=== PATIENT | male | born 1955 | race Caucasian/White ===

== ENCOUNTER 2018-03-06 10:50 | Inpatient (IN) ==
[2018-03-06] MEDS ORDERED: ASPIRIN 325 MG TABLET PO STA (11:03)
[2018-03-06] MEDS ORDERED: LOPERAMIDE 2 MG CAPSULE PO STA (11:09)
[2018-03-06] MEDS ORDERED: ALBUTEROL/IPRATROPIUM 3 ML NEB RESP TX STA (11:09)
[2018-03-06] MEDS ORDERED: methylPREDNISolone SOD SUC 125 MG/2 ML VIAL IV STA (11:11)
[2018-03-06 11:16] LABS: Basophils # 0.1 10*3/uL (0.0-0.2); Basophils % 0.8 % (0.0-0.8); Eosinophils # 0.3 10*3/uL (0.0-0.87); Eosinophils % 3.3 % (0.00-10.9); Hematocrit 38.6 VOL% (42.0-52.0); Immature Granulocytes % 0.4 %; Immature Granulocytes Absolute 0.03 #; Lymphocytes # 1.3 10*3/uL (1.4-4.0); Lymphocytes % 17.7 % (21.2-54.2); Mean Corpuscular HGB Conc 33.7 GM/DL (32-36); Mean Corpuscular Hemoglobin 30 PG (27-34); Mean Corpuscular Volume 90.4 FL (87-102); Mean Platelet Volume 10.7 FL (9.6-12.0); Monocytes # 0.7 10*3/uL (0.11-0.8); Monocytes % 9.2 % (1.7-12.7); Neutrophils # 5.1 10*3/uL (1.4-7.4); Neutrophils % 68.6 % (38.7-73.9); Platelet Count 140 T/CUMM (130-400); Red Blood Count 4.27 MC/CUMM (3.8-5.5); Red Cell Distribution Width 14.4 % (9.3-17.3); White Blood Count 7.5 T/CUMM (4-12)
[2018-03-06 11:25] LABS: INR 1.1; PT Patient Result 11.1 SECS; Partial Thromboplastin Time 27.1 SECS (0-40)
[2018-03-06 11:42] LABS: Albumin 3.5 G/DL (3.4-5.0); Bilirubin,Total 0.7 MG/DL (0.2-1.0); Calcium 8.6 MG/DL (8.5-10.1); Osmolality,Calculated 289.8 MOS/KG (273-304); Potassium 3.8 MMOL/L (3.5-5.1)
[2018-03-06 11:46] LABS: Troponin I 0.136 NG/ML (0.00-0.045)
[2018-03-06 12:39] LABS: Apearance,Urine CLEAR (Clear); Bacteria,Urine Occasional /HPF (Few); Bilirubin,Urine Negative (Negative); Blood, Urine Negative (Negative); Glucose,Urine (UA) Negative (Negative); Ketones,Urine Negative (Negative); Mucus,Urine Occasional /LPF (Occasional); Nitrite,Urine Negative (Negative); Protein,Urine Negative; RBC,Urine <1 /HPF (0-4); Urine Color Straw (Yellow); Urine Specific Gravity 1.006 (1.001-1.035); Urine Urobilinogen < 2.0 EU/DL (0.2-1.0)
[2018-03-06] MEDS ORDERED: FUROSEMIDE 20 MG TABLET PO PRN (13:53)
[2018-03-06] MEDS ORDERED: ERGOCALCIFEROL 50,000 UNIT CAPSULE PO SCH (14:00)
[2018-03-06] MEDS ORDERED: ONDANSETRON 4 MG/2 ML VIAL IV PRN (14:03)
[2018-03-06] MEDS ORDERED: ACETAMINOPHEN 325 MG TABLET PO PRN (14:03)
[2018-03-06] MEDS ORDERED: MAGNESIUM SULF RIDER 2 GM in PREMIX 1 EACH IV PRN (14:06)
[2018-03-06] MEDS ORDERED: POTASSIUM CHLORIDE 20 MEQ TABLET PO PRN (14:06)
[2018-03-06] MEDS: cefTRIAXone 2,000 MG in SYRINGE 1 EACH IV SCH (16:42)
[2018-03-06] MEDS: FUROSEMIDE 40 MG/4 ML VIAL IV SCH (16:42)
[2018-03-06] MEDS: AZITHROMYCIN INJ 500 MG in SODIUM CHLORIDE 0.9% 250 ML IV SCH (16:43)
[2018-03-06] MEDS: ENOXAPARIN 150 MG/ML SYRINGE SUBCUT SCH (17:40)
[2018-03-06] MEDS ORDERED: NITROGLYCERIN SL 0.4 MG TABLET SL PRN (17:44)
[2018-03-06] MEDS ORDERED: LISINOPRIL 20 MG TABLET PO ONE (18:00)
[2018-03-06] MEDS ORDERED: cloNIDine 0.1 MG TABLET PO PRN (19:35)
[2018-03-06] MEDS: ALBUTEROL/IPRATROPIUM 3 ML NEB RESP TX SCH (19:43)
[2018-03-06] MEDS: ATORVASTATIN 80 MG TABLET PO SCH (20:52)
[2018-03-06] MEDS: METOPROLOL TARTRATE 25 MG TABLET PO SCH (20:52)
[2018-03-06] MEDS: TAMSULOSIN 0.4 MG CAPSULE PO SCH (20:53)
[2018-03-06] MEDS: methylPREDNISolone SOD SUC 40 MG/1 ML VIAL IV SCH (20:53)
[2018-03-06] MEDS: clonazePAM 0.5 MG TABLET PO SCH (21:39)
[2018-03-07] MEDS: ALBUTEROL/IPRATROPIUM 3 ML NEB RESP TX SCH ×4 (00:32→19:03)
[2018-03-07 04:19] LABS: Basophils % 0.3 % (0.0-0.8); Hematocrit 37.8 VOL% (42.0-52.0); Hemoglobin 12.4 GM/DL (14.0-18.0); Immature Granulocytes % 0.6 %; Immature Granulocytes Absolute 0.04 #; Lymphocytes # 0.7 10*3/uL (1.4-4.0); Mean Corpuscular HGB Conc 32.8 GM/DL (32-36); Mean Corpuscular Hemoglobin 30 PG (27-34); Mean Corpuscular Volume 90.6 FL (87-102); Mean Platelet Volume 11.2 FL (9.6-12.0); Monocytes # 0.2 10*3/uL (0.11-0.8); Monocytes % 2.5 % (1.7-12.7); Neutrophils # 5.7 10*3/uL (1.4-7.4); Neutrophils % 86.6 % (38.7-73.9); Platelet Count 129 T/CUMM (130-400); Red Blood Count 4.17 MC/CUMM (3.8-5.5); Red Cell Distribution Width 14.3 % (9.3-17.3); White Blood Count 6.5 T/CUMM (4-12)
[2018-03-07 04:33] LABS: Calcium 8.8 MG/DL (8.5-10.1); Osmolality,Calculated 289.3 MOS/KG (273-304); Potassium 3.8 MMOL/L (3.5-5.1)
[2018-03-07 04:36] LABS: Risk Ratio 4.09; VLDL CHOLESTEROL 35.2 MG/DL
[2018-03-07] MEDS: ENOXAPARIN 150 MG/ML SYRINGE SUBCUT SCH ×2 (05:41→21:36)
[2018-03-07] MEDS ORDERED: POTASSIUM CHLORIDE RIDER 10 MEQ in PREMIX 1 EACH IV PRN (07:41)
[2018-03-07] MEDS ORDERED: MAGNESIUM SULF RIDER 2 GM in PREMIX 1 EACH IV PRN (07:41)
[2018-03-07] MEDS ORDERED: DIAZEPAM 5 MG TABLET PO ONE (07:41)
[2018-03-07] MEDS ORDERED: diphenhydrAMINE CAP 25 MG CAPSULE PO ONE (07:41)
[2018-03-07] MEDS ORDERED: HEPARIN/NACL 0.9% 2 UNITS/ML 1,000 ML IV ONE (07:55)
[2018-03-07] MEDS ORDERED: LIDOCAINE 1%/EPI INJ 20 ML VIAL ONE (07:55)
[2018-03-07] MEDS: ASPIRIN EC 81 MG TABLET PO SCH (08:09)
[2018-03-07] MEDS ORDERED: LIDOCAINE 1% 20 ML VIAL ONE (08:42)
[2018-03-07] MEDS ORDERED: NITROGLYCERIN DRIP 50 MG/250 ML BOTTLE IV ONE (08:44)
[2018-03-07] MEDS ORDERED: MIDAZOLAM 2 MG/2 ML VIAL ONE (08:44)
[2018-03-07] MEDS ORDERED: fentaNYL 100 MCG/2 ML VIAL ONE (08:44)
[2018-03-07] MEDS ORDERED: VERAPAMIL 5 MG/2 ML VIAL ONE (08:44)
[2018-03-07] MEDS ORDERED: CLOPIDOGREL 75 MG TABLET PO SCH (09:00)
[2018-03-07] MEDS ORDERED: FAMOTIDINE 20 MG TABLET PO SCH (09:00)
[2018-03-07] MEDS ORDERED: HYDROmorphone 2 MG/1 ML VIAL IV PRN (09:29)
[2018-03-07] MEDS ORDERED: DEXTROSE 5% NACL 0.45% 1,000 ML IV SCH (09:30)
[2018-03-07] MEDS: LISINOPRIL 20 MG TABLET PO SCH (14:17)
[2018-03-07] MEDS: PANTOPRAZOLE 40 MG TABLET PO SCH (14:17)
[2018-03-07] MEDS: COENZYME Q10 100 MG CAPSULE PO SCH (14:17)
[2018-03-07] MEDS: MULTIVITAMIN (BEROCCA) TABLET PO SCH (14:17)
[2018-03-07] MEDS: THIAMINE 100 MG TABLET PO SCH (14:17)
[2018-03-07] MEDS: TRIAMTERENE/HCTZ 75-50 MG TABLET PO SCH (14:18)
[2018-03-07] MEDS: ISOSORBIDE MONONITRATE 30 MG TABLET PO SCH (14:18)
[2018-03-07] MEDS: FOLIC ACID 1 MG TABLET PO SCH (14:18)
[2018-03-07] MEDS: ESCITALOPRAM 10 MG TABLET PO SCH (14:18)
[2018-03-07] MEDS: ATORVASTATIN 80 MG TABLET PO SCH (14:18)
[2018-03-07] MEDS: methylPREDNISolone SOD SUC 40 MG/1 ML VIAL IV SCH ×2 (14:19→21:36)
[2018-03-07] MEDS: FUROSEMIDE 40 MG/4 ML VIAL IV SCH (14:25)
[2018-03-07] MEDS: METOPROLOL TARTRATE 25 MG TABLET PO SCH ×2 (14:29→21:36)
[2018-03-07] MEDS: SAW PALMETTO 500 MG PO SCH (15:28)
[2018-03-07] MEDS: cefTRIAXone 2,000 MG in SYRINGE 1 EACH IV SCH (16:48)
[2018-03-07] MEDS: AZITHROMYCIN INJ 500 MG in SODIUM CHLORIDE 0.9% 250 ML IV SCH (16:55)
[2018-03-07] MEDS: TAMSULOSIN 0.4 MG CAPSULE PO SCH (21:27)
[2018-03-07] MEDS: clonazePAM 0.5 MG TABLET PO SCH (21:27)
[2018-03-08] MEDS: ALBUTEROL/IPRATROPIUM 3 ML NEB RESP TX SCH ×4 (00:12→19:00)
[2018-03-08 04:07] LABS: Basophils % 0.1 % (0.0-0.8); Hematocrit 35.7 VOL% (42.0-52.0); Hemoglobin 11.8 GM/DL (14.0-18.0); Immature Granulocytes % 0.7 %; Immature Granulocytes Absolute 0.05 #; Lymphocytes # 0.8 10*3/uL (1.4-4.0); Mean Corpuscular HGB Conc 33.1 GM/DL (32-36); Mean Corpuscular Hemoglobin 30 PG (27-34); Mean Corpuscular Volume 91.1 FL (87-102); Mean Platelet Volume 11.7 FL (9.6-12.0); Monocytes # 0.2 10*3/uL (0.11-0.8); Monocytes % 2.6 % (1.7-12.7); Neutrophils # 6.6 10*3/uL (1.4-7.4); Neutrophils % 86.6 % (38.7-73.9); Platelet Count 142 T/CUMM (130-400); Red Blood Count 3.92 MC/CUMM (3.8-5.5); Red Cell Distribution Width 14.6 % (9.3-17.3); White Blood Count 7.6 T/CUMM (4-12)
[2018-03-08 04:38] LABS: Calcium 8.7 MG/DL (8.5-10.1); Osmolality,Calculated 286.5 MOS/KG (273-304); Potassium 4.1 MMOL/L (3.5-5.1)
[2018-03-08] MEDS: ISOSORBIDE MONONITRATE 30 MG TABLET PO SCH (08:54)
[2018-03-08] MEDS: THIAMINE 100 MG TABLET PO SCH (08:54)
[2018-03-08] MEDS: MULTIVITAMIN (BEROCCA) TABLET PO SCH (08:54)
[2018-03-08] MEDS: PANTOPRAZOLE 40 MG TABLET PO SCH (08:54)
[2018-03-08] MEDS: ESCITALOPRAM 10 MG TABLET PO SCH (08:54)
[2018-03-08] MEDS: LISINOPRIL 20 MG TABLET PO SCH (08:54)
[2018-03-08] MEDS: ASPIRIN EC 81 MG TABLET PO SCH (08:54)
[2018-03-08] MEDS: FOLIC ACID 1 MG TABLET PO SCH (08:54)
[2018-03-08] MEDS: ATORVASTATIN 80 MG TABLET PO SCH (08:54)
[2018-03-08] MEDS: COENZYME Q10 100 MG CAPSULE PO SCH (08:55)
[2018-03-08] MEDS: methylPREDNISolone SOD SUC 40 MG/1 ML VIAL IV SCH ×2 (08:56→20:51)
[2018-03-08] MEDS: METOPROLOL TARTRATE 25 MG TABLET PO SCH ×3 (08:56→20:52)
[2018-03-08] MEDS ORDERED: POLYETHYLENE GLYCOL POWDER 17 GM PACK PO PRN (08:57)
[2018-03-08] MEDS: FUROSEMIDE 40 MG/4 ML VIAL IV SCH (08:57)
[2018-03-08] MEDS: ENOXAPARIN 150 MG/ML SYRINGE SUBCUT SCH (09:01)
[2018-03-08] MEDS: SAW PALMETTO 500 MG PO SCH (09:08)
[2018-03-08] MEDS ORDERED: DEXTROSE 50% 25 GM/50 ML VIAL IV PRN ×2 (09:21→09:23)
[2018-03-08] MEDS ORDERED: GLUCAGON 1 MG VIAL IM PRN ×2 (09:21→09:23)
[2018-03-08] MEDS ORDERED: CEFUROXIME INJ 1,500 MG in SODIUM CHLORIDE 0.9% 100 ML IV ONE (09:23)
[2018-03-08] MEDS ORDERED: SODIUM CHLORIDE 0.9% 1,000 ML IV SCH (09:30)
[2018-03-08 09:59] LABS: ABG HCO3 23.5 MMOL/L (20-26); ABG PCO2 37.2 MM HG (35-48); ABG PH 7.404 (7.35-7.45); ABG TCO2 20.4 MMOL/L (23-27)
[2018-03-08] MEDS: SODIUM CHLORIDE 0.9% 1,000 ML IV SCH (10:06)
[2018-03-08] MEDS ORDERED: CHLORHEXIDINE 4% SOLN 118 ML BOTTLE TOP SCH (15:00)
[2018-03-08] MEDS: TRIAMTERENE/HCTZ 75-50 MG TABLET PO SCH (15:10)
[2018-03-08] MEDS: CHLORHEXIDINE 4% SOLN 118 ML BOTTLE TOP SCH ×2 (15:36→20:51)
[2018-03-08] MEDS: cefTRIAXone 2,000 MG in SYRINGE 1 EACH IV SCH (16:28)
[2018-03-08] MEDS: AZITHROMYCIN INJ 500 MG in SODIUM CHLORIDE 0.9% 250 ML IV SCH (16:34)
[2018-03-08] MEDS: CHLORHEXIDINE 0.12% ORAL RINSE 60 ML BOTTLE SWISH/SPIT SCH (20:50)
[2018-03-08] MEDS: TAMSULOSIN 0.4 MG CAPSULE PO SCH (20:51)
[2018-03-08] MEDS: clonazePAM 0.5 MG TABLET PO SCH (20:51)
[2018-03-08] MEDS ORDERED: CHLORHEXIDINE 0.12% ORAL RINSE 60 ML BOTTLE SWISH/SPIT SCH (21:00)
[2018-03-09] MEDS: ALBUTEROL/IPRATROPIUM 3 ML NEB RESP TX SCH ×2 (00:20→07:04)
[2018-03-09] MEDS ORDERED: VANCOMYCIN 1,000 MG VIAL ONE (04:47)
[2018-03-09] MEDS ORDERED: PAPAVERINE 60 MG/2 ML VIAL ONE (04:47)
[2018-03-09 05:00] LABS: Alanine Aminotransferase 24 U/L (16-61); Albumin 3.4 G/DL (3.4-5.0); Alkaline Phosphatase 57 U/L (45-117); Aspartate Amino Transferase 9 U/L (0-37); Bilirubin,Total < 0.39 MG/DL (0.2-1.0); Blood Urea Nitrogen 39 MG/DL (7-18); Calcium 8.4 MG/DL (8.5-10.1); Glucose 140 MG/DL (74-106); Osmolality,Calculated 289.4 MOS/KG (273-304); Potassium 4.1 MMOL/L (3.5-5.1); Sodium 140 MMOL/L (136-145); Total Protein 7.1 G/DL (6.4-8.3)
[2018-03-09] MEDS ORDERED: CEFUROXIME INJ 1,500 MG in SYRINGE 1 EACH IV ONE (05:00)
[2018-03-09] MEDS ORDERED: DIAZEPAM 5 MG TABLET PO ONE (05:30)
[2018-03-09] MEDS: METOPROLOL TARTRATE 25 MG TABLET PO SCH (05:32)
[2018-03-09] MEDS: PANTOPRAZOLE 40 MG TABLET PO SCH (05:32)
[2018-03-09] MEDS ORDERED: SUFentanil 250 MCG/5 ML AMP ONE (05:53)
[2018-03-09] MEDS ORDERED: MIDAZOLAM 10 MG/2 ML VIAL ONE ×2 (05:53)
[2018-03-09 07:45] LABS: ABG HCO3 25.3 MMOL/L (20-26); ABG PCO2 39.3 MM HG (35-48); ABG PH 7.418 (7.35-7.45); ABG TCO2 22.3 MMOL/L (23-27); Glucose Heart Surgery 124 MG/DL (74-106); Hematocrit Heart Surgery 38.4 PERCENT (42-52); Hemoglobin Heart Surgery 12.5 G/DL (14.0-18.0); Ionized Calcium Arterial 1.12 MMOL/L (1.21-1.46); PCO2 Patient Temp Arterial 39.3 MMHG; PH Patient Temp Arterial 7.418; Patient Temperature 37 CELCIUS; Sodium Heart/CVR 138 MMOL/L (135-145)
[2018-03-09 08:12] LABS: Apearance,Urine CLEAR (Clear); Bacteria,Urine Occasional /HPF (Few); Bilirubin,Urine Negative (Negative); Blood, Urine Small mg/dL (Negative); Glucose,Urine (UA) Negative (Negative); Ketones,Urine Negative (Negative); Nitrite,Urine Negative (Negative); Protein,Urine Negative; RBC,Urine <1 /HPF (0-4); Urine Color Straw (Yellow); Urine Urobilinogen < 2.0 EU/DL (0.2-1.0); WBC,Urine <1 /HPF (0-6)
[2018-03-09] MEDS ORDERED: ALBUMIN 5% 12.5 GM/250 ML VIAL IV ONE (08:20)
[2018-03-09] MEDS ORDERED: PHENYLEPHRINE DRIP 40 MG/250 ML PREMIX IV ONE (08:20)
[2018-03-09] MEDS ORDERED: NITROPRUSSIDE 50 MG/2 ML VIAL ONE (08:20)
[2018-03-09] MEDS ORDERED: EPINEPHrine 1 MG/10 ML SYRINGE ONE (08:20)
[2018-03-09] MEDS ORDERED: LIDOCAINE 100 MG/5 ML SYRINGE ONE (08:21)
[2018-03-09] MEDS ORDERED: ATROPINE 1 MG/10 ML SYRINGE ONE (08:21)
[2018-03-09] MEDS ORDERED: POTASSIUM CHLORIDE RIDER 100 ML IV ONE (08:21)
[2018-03-09] MEDS: ESCITALOPRAM 10 MG TABLET PO SCH (09:13)
[2018-03-09] MEDS: ISOSORBIDE MONONITRATE 30 MG TABLET PO SCH (09:13)
[2018-03-09] MEDS: ATORVASTATIN 80 MG TABLET PO SCH (09:13)
[2018-03-09] MEDS: MULTIVITAMIN (BEROCCA) TABLET PO SCH (09:13)
[2018-03-09] MEDS: FUROSEMIDE 40 MG/4 ML VIAL IV SCH (09:13)
[2018-03-09] MEDS: CHLORHEXIDINE 4% SOLN 118 ML BOTTLE TOP SCH (09:13)
[2018-03-09] MEDS: COENZYME Q10 100 MG CAPSULE PO SCH (09:13)
[2018-03-09] MEDS: ASPIRIN EC 81 MG TABLET PO SCH (09:13)
[2018-03-09] MEDS: FOLIC ACID 1 MG TABLET PO SCH (09:13)
[2018-03-09] MEDS: LISINOPRIL 20 MG TABLET PO SCH (09:14)
[2018-03-09] MEDS: CHLORHEXIDINE 0.12% ORAL RINSE 60 ML BOTTLE SWISH/SPIT SCH ×2 (09:14→21:11)
[2018-03-09] MEDS: TRIAMTERENE/HCTZ 75-50 MG TABLET PO SCH (09:14)
[2018-03-09] MEDS: methylPREDNISolone SOD SUC 40 MG/1 ML VIAL IV SCH ×2 (09:14→14:01)
[2018-03-09] MEDS: SAW PALMETTO 500 MG PO SCH (09:14)
[2018-03-09] MEDS: THIAMINE 100 MG TABLET PO SCH (09:15)
[2018-03-09] MEDS: SODIUM CHLORIDE 0.9% 1,000 ML IV SCH (09:16)
[2018-03-09 09:32] LABS: Hematocrit Heart Surgery 29.6 PERCENT (42-52); Hemoglobin Heart Surgery 9.6 G/DL (14.0-18.0); PCO2 Patient Temp Venous 36.6 MM HG; PH Patient Temp Venous 7.464; Potassium Heart/CVR 3.9 MMOL/L (3.5-5.1); VBG Base Excess 2.6 MEQ/L (0-4); VBG HCO3 26.4 MEQ/L (24-28); VBG Oxygen Saturation 76.4 %; VBG PCO2 40.4 MMHG (41-51); VBG PH 7.434; VBG PO2 41.4 MMHG (17-40)
[2018-03-09 09:59] LABS: Hematocrit Heart Surgery 32.6 PERCENT (42-52); Hemoglobin Heart Surgery 10.5 G/DL (14.0-18.0); PCO2 Patient Temp Venous 32.7 MM HG; PH Patient Temp Venous 7.491; PO2 Patient Temp Venous 32.3 MM HG; Potassium Heart/CVR 3.8 MMOL/L (3.5-5.1); VBG Base Excess 2.1 MEQ/L (0-4); VBG HCO3 25.9 MEQ/L (24-28); VBG Oxygen Saturation 78.2 %; VBG PCO2 39.7 MMHG (41-51); VBG PH 7.432; VBG PO2 42.8 MMHG (17-40)
[2018-03-09 10:31] LABS: Hematocrit Heart Surgery 30.8 PERCENT (42-52); Potassium Heart/CVR 4.5 MMOL/L (3.5-5.1); VBG HCO3 25.8 MEQ/L (24-28); VBG Oxygen Saturation 76.8 %; VBG PCO2 38.6 MMHG (41-51); VBG PH 7.439; VBG PO2 41.9 MMHG (17-40)
[2018-03-09 10:32] LABS: PCO2 Patient Temp Venous 36.8 MM HG; PH Patient Temp Venous 7.454; PO2 Patient Temp Venous 39.1 MM HG
[2018-03-09] MEDS ORDERED: DEXTROSE 5% KCL 20 MEQ 20 MEQ/1,000 ML BAG IV ONE (11:03)
[2018-03-09] MEDS ORDERED: HEPARIN 10,000 UNIT/10 ML VIAL ONE (11:03)
[2018-03-09] MEDS ORDERED: methylPREDNISolone SOD SUC 1,000 MG/8 ML VIAL ONE (11:03)
[2018-03-09] MEDS ORDERED: MAGNESIUM SULFATE 10 GM/20 ML VIAL IV ONE (11:03)
[2018-03-09] MEDS ORDERED: SODIUM BICARBONATE 50 MEQ/50 ML SYRINGE IV ONE (11:03)
[2018-03-09] MEDS ORDERED: ALBUMIN 25% 25 GM/100 ML VIAL IV ONE (11:03)
[2018-03-09] MEDS ORDERED: PROTAMINE SULFATE 250 MG/25 ML VIAL IV ONE (11:03)
[2018-03-09] MEDS ORDERED: FUROSEMIDE 20 MG/2 ML VIAL ONE (11:04)
[2018-03-09] MEDS ORDERED: MANNITOL 12.5 GM/50 ML VIAL IV ONE (11:04)
[2018-03-09] MEDS ORDERED: PROTAMINE SULFATE 50 MG/5 ML VIAL IV ONE ×4 (11:04→18:40)
[2018-03-09] MEDS ORDERED: POTASSIUM CHLORIDE 20 MEQ/10 ML VIAL ONE (11:04)
[2018-03-09 11:22] LABS: ABG Base Excess 0.4 MMOL/L (-2.5-2.5); ABG HCO3 24.8 MMOL/L (20-26); ABG Oxygen Saturation 99.4 % (95-100); ABG PCO2 50.5 MM HG (35-48); ABG PH 7.334 (7.35-7.45); ABG TCO2 24.7 MMOL/L (23-27); Glucose Heart Surgery 192 MG/DL (74-106); Hematocrit Heart Surgery 29.3 PERCENT (42-52); Hemoglobin Heart Surgery 9.5 G/DL (14.0-18.0); Ionized Calcium Arterial 1.35 MMOL/L (1.21-1.46); PCO2 Patient Temp Arterial 50.5 MMHG; PH Patient Temp Arterial 7.334; Patient Temperature 37 CELCIUS; Potassium Heart/CVR 3.1 MMOL/L (3.5-5.1); Sodium Heart/CVR 139 MMOL/L (135-145)
[2018-03-09] MEDS ORDERED: CALCIUM CHLORIDE 1,000 MG/10 ML SYRINGE IV PRN (12:55)
[2018-03-09] MEDS ORDERED: MIDAZOLAM 10 MG/2 ML VIAL IV PRN (12:55)
[2018-03-09] MEDS ORDERED: MAGNESIUM SULF RIDER 2 GM in PREMIX 1 EACH IV PRN (12:55)
[2018-03-09] MEDS ORDERED: DEXTROSE 50% 25 GM/50 ML VIAL IV PRN ×2 (12:55)
[2018-03-09] MEDS ORDERED: ONDANSETRON 4 MG/2 ML VIAL IV PRN (12:55)
[2018-03-09] MEDS ORDERED: MIDAZOLAM 2 MG/2 ML VIAL IV PRN (12:55)
[2018-03-09] MEDS ORDERED: VECURONIUM 10 MG VIAL IV PRN ×2 (12:55)
[2018-03-09] MEDS ORDERED: NITROPRUSSIDE 100 MG in DEXTROSE 5% 250 ML IV PRN (12:55)
[2018-03-09] MEDS ORDERED: INSULIN REGULAR 100 UNIT/ML IV PRN (12:55)
[2018-03-09] MEDS ORDERED: LACTATED RINGERS 250 ML IV PRN (12:55)
[2018-03-09] MEDS ORDERED: INSULIN REGULAR 100 UNIT/ML IV ONE (12:55)
[2018-03-09] MEDS ORDERED: PHENYLEPHRINE DRIP 40 MG/250 ML PREMIX IV PRN (12:55)
[2018-03-09] MEDS ORDERED: POTASSIUM CHLORIDE RIDER 10 MEQ in PREMIX 1 EACH IV PRN (12:55)
[2018-03-09] MEDS ORDERED: MAGNESIUM SULF RIDER 4 GM in PREMIX 1 EACH IV PRN (12:55)
[2018-03-09] MEDS ORDERED: ACETAMINOPHEN 650 MG SUPP RECTAL PRN (12:55)
[2018-03-09] MEDS ORDERED: MORPHINE 10 MG/1 ML VIAL IV PRN (12:55)
[2018-03-09] MEDS ORDERED: INSULIN REGULAR DRIP 100 ML IV SCH (13:00)
[2018-03-09] MEDS ORDERED: SODIUM CHLORIDE 0.45% 1,000 ML IV SCH ×2 (13:00)
[2018-03-09 13:02] LABS: Basophils % 0.1 % (0.0-0.8); Eosinophils % 0.1 % (0.00-10.9); Hematocrit 28.1 VOL% (42.0-52.0); Hemoglobin 9.6 GM/DL (14.0-18.0); Immature Granulocytes % 2.1 %; Immature Granulocytes Absolute 0.28 #; Lymphocytes # 0.7 10*3/uL (1.4-4.0); Mean Corpuscular HGB Conc 34.2 GM/DL (32-36); Mean Corpuscular Hemoglobin 33 PG (27-34); Mean Corpuscular Volume 95.3 FL (87-102); Mean Platelet Volume 11.2 FL (9.6-12.0); Monocytes # 0.9 10*3/uL (0.11-0.8); Monocytes % 6.3 % (1.7-12.7); Neutrophils # 11.7 10*3/uL (1.4-7.4); Neutrophils % 86.4 % (38.7-73.9); Platelet Count 195 T/CUMM (130-400); Red Blood Count 2.95 MC/CUMM (3.8-5.5); Red Cell Distribution Width 15.6 % (9.3-17.3); White Blood Count 13.6 T/CUMM (4-12)
[2018-03-09 13:03] LABS: ABG HCO3 25.3 MMOL/L (20-26); ABG Oxygen Saturation 99.5 % (95-100); ABG PCO2 44.7 MM HG (35-48); ABG PH 7.379 (7.35-7.45); ABG TCO2 24.2 MMOL/L (23-27); Glucose Heart Surgery 148 MG/DL (74-106); Hematocrit Heart Surgery 29.5 PERCENT (42-52); Hemoglobin Heart Surgery 9.5 G/DL (14.0-18.0); Potassium Heart/CVR 3.9 MMOL/L (3.5-5.1)
[2018-03-09] MEDS: LACTATED RINGERS 1,000 ML IV PRN ×2 (13:03→14:16)
[2018-03-09 13:12] LABS: INR 1.1; PT Patient Result 12.3 SECS; Partial Thromboplastin Time 27.1 SECS (0-40)
[2018-03-09 13:29] LABS: CKMB % 7.3 %
[2018-03-09] MEDS ORDERED: CALCIUM CHLORIDE 1,000 MG/10 ML VIAL IV ONE (13:30)
[2018-03-09] MEDS ORDERED: SODIUM CHLORIDE 0.9% 1,000 ML IV ONE (13:31)
[2018-03-09] MEDS ORDERED: MINERAL OIL/PETROLATUM OPH OINT 3.5 GM TUBE ONE (13:31)
[2018-03-09] MEDS ORDERED: SEVOFLURANE 1 UNIT/15 MINUTE INH ONE (13:31)
[2018-03-09] MEDS ORDERED: AMINOCAPROIC ACID 5,000 MG/20 ML VIAL IV ONE (13:31)
[2018-03-09] MEDS ORDERED: SODIUM CHLORIDE 0.9% 100 ML IV ONE (13:31)
[2018-03-09 13:32] LABS: Albumin 3.4 G/DL (3.4-5.0); Bilirubin,Total 0.8 MG/DL (0.2-1.0); Calcium 9.2 MG/DL (8.5-10.1); Osmolality,Calculated 295.8 MOS/KG (273-304); Potassium 4.1 MMOL/L (3.5-5.1)
[2018-03-09] MEDS ORDERED: ePHEDrine 50 MG/ML AMP ONE (13:32)
[2018-03-09] MEDS ORDERED: PHENYLEPHRINE 10 MG/1 ML VIAL IV ONE (13:32)
[2018-03-09] MEDS ORDERED: SODIUM CHLORIDE 0.9% 500 ML IV ONE (13:33)
[2018-03-09] MEDS ORDERED: GLYCOPYRROLATE 0.4 MG/2 ML VIAL ONE (13:33)
[2018-03-09] MEDS ORDERED: ROCURONIUM 100 MG/10 ML VIAL IV ONE (13:33)
[2018-03-09] MEDS ORDERED: SUCCINYLCHOLINE 200 MG/10 ML VIAL ONE (13:33)
[2018-03-09] MEDS ORDERED: ETOMIDATE 40 MG/20 ML VIAL IV ONE (13:33)
[2018-03-09] MEDS ORDERED: PHENYLEPHRINE 1 MG/10 ML SYRINGE IV ONE (13:33)
[2018-03-09] MEDS ORDERED: NITROGLYCERIN DRIP 50 MG/250 ML BOTTLE IV ONE (13:33)
[2018-03-09] MEDS ORDERED: LACTATED RINGERS 1,000 ML IV ONE (13:33)
[2018-03-09 13:34] LABS: Troponin I 5.49 NG/ML (0.00-0.045)
[2018-03-09] MEDS: POTASSIUM CHLORIDE RIDER 20 MEQ in PREMIX 1 EACH IV PRN (13:39)
[2018-03-09] MEDS: ALBUMIN 5% 12.5 GM in PREMIX 1 EACH IV PRN ×3 (14:05→14:59)
[2018-03-09 14:24] LABS: ABG Base Excess 0.4 MMOL/L (-2.5-2.5); ABG HCO3 24.8 MMOL/L (20-26); ABG Oxygen Saturation 98.5 % (95-100); ABG PCO2 48.4 MM HG (35-48); ABG PH 7.347 (7.35-7.45); ABG TCO2 24.2 MMOL/L (23-27); Glucose Heart Surgery 128 MG/DL (74-106); Hematocrit Heart Surgery 31.2 PERCENT (42-52); Hemoglobin Heart Surgery 10.1 G/DL (14.0-18.0); Potassium Heart/CVR 4.5 MMOL/L (3.5-5.1)
[2018-03-09 16:40] LABS: ABG Base Excess 0.9 MMOL/L (-2.5-2.5); ABG HCO3 27.5 MMOL/L (20-26); ABG Oxygen Saturation 96.2 % (95-100); ABG PCO2 53.4 MM HG (35-48); ABG PH 7.329 (7.35-7.45); ABG PO2 97.4 MM HG (80-95); ABG TCO2 29.1 MMOL/L (23-27); Glucose Heart Surgery 118 MG/DL (74-106); Hemoglobin Heart Surgery 10.8 G/DL (14.0-18.0); Potassium Heart/CVR 4.8 MMOL/L (3.5-5.1)
[2018-03-09] MEDS: INSULIN REGULAR 100 UNIT/ML SUBCUT SCH ×3 (16:57→22:19)
[2018-03-09 18:19] LABS: ABG Base Excess 0.7 MMOL/L (-2.5-2.5); ABG HCO3 26.8 MMOL/L (20-26); ABG Oxygen Saturation 96.4 % (95-100); ABG PCO2 49.7 MM HG (35-48); ABG PH 7.349 (7.35-7.45); ABG PO2 98.9 MM HG (80-95); ABG TCO2 28.3 MMOL/L (23-27); Glucose Heart Surgery 149 MG/DL (74-106); Hemoglobin Heart Surgery 10.4 G/DL (14.0-18.0); Potassium Heart/CVR 4.9 MMOL/L (3.5-5.1)
[2018-03-09 19:15] LABS: ABG Base Excess 0.8 MMOL/L (-2.5-2.5); ABG HCO3 27.5 MMOL/L (20-26); ABG Oxygen Saturation 97.7 % (95-100); ABG PCO2 54.8 MM HG (35-48); ABG PH 7.319 (7.35-7.45); ABG PO2 129.3 MM HG (80-95); ABG TCO2 29.2 MMOL/L (23-27); Glucose Heart Surgery 157 MG/DL (74-106); Hemoglobin Heart Surgery 10.3 G/DL (14.0-18.0); Potassium Heart/CVR 4.9 MMOL/L (3.5-5.1)
[2018-03-09] MEDS ORDERED: FUROSEMIDE 40 MG/4 ML VIAL IV ONE (20:14)
[2018-03-09] MEDS: CEFUROXIME INJ 1,500 MG in SYRINGE 1 EACH IV SCH (21:11)
[2018-03-09 22:02] LABS: ABG Base Excess 2.6 MMOL/L (-2.5-2.5); ABG HCO3 28.4 MMOL/L (20-26); ABG Oxygen Saturation 97.1 % (95-100); ABG PCO2 49.7 MM HG (35-48); ABG PH 7.375 (7.35-7.45); ABG PO2 105.6 MM HG (80-95); ABG TCO2 29.9 MMOL/L (23-27); Glucose Heart Surgery 160 MG/DL (74-106); Hemoglobin Heart Surgery 9.8 G/DL (14.0-18.0); Potassium Heart/CVR 4.3 MMOL/L (3.5-5.1)
[2018-03-09 23:26] LABS: ABG Base Excess 2.2 MMOL/L (-2.5-2.5); ABG HCO3 28.2 MMOL/L (20-26); ABG Oxygen Saturation 96.8 % (95-100); ABG PH 7.361 (7.35-7.45); ABG PO2 103.7 MM HG (80-95); ABG TCO2 29.8 MMOL/L (23-27); Glucose Heart Surgery 155 MG/DL (74-106); Potassium Heart/CVR 4.4 MMOL/L (3.5-5.1)
[2018-03-09 23:50] LABS: Troponin I 4.61 NG/ML (0.00-0.045)
[2018-03-10 00:19] LABS: ABG Base Excess 2.4 MMOL/L (-2.5-2.5); ABG HCO3 28.2 MMOL/L (20-26); ABG Oxygen Saturation 97.4 % (95-100); ABG PCO2 49.4 MM HG (35-48); ABG PH 7.374 (7.35-7.45); ABG PO2 118.1 MM HG (80-95); ABG TCO2 29.7 MMOL/L (23-27); Glucose Heart Surgery 150 MG/DL (74-106); Hemoglobin Heart Surgery 9.9 G/DL (14.0-18.0); Potassium Heart/CVR 4.3 MMOL/L (3.5-5.1)
[2018-03-10 01:23] LABS: ABG Base Excess 2.6 MMOL/L (-2.5-2.5); ABG HCO3 28.1 MMOL/L (20-26); ABG Oxygen Saturation 97.7 % (95-100); ABG PCO2 48.2 MM HG (35-48); ABG PH 7.384 (7.35-7.45); ABG PO2 119.4 MM HG (80-95); ABG TCO2 29.6 MMOL/L (23-27); Glucose Heart Surgery 148 MG/DL (74-106); Hemoglobin Heart Surgery 9.7 G/DL (14.0-18.0); Potassium Heart/CVR 4.2 MMOL/L (3.5-5.1)
[2018-03-10 01:54] LABS: ABG Base Excess 2.4 MMOL/L (-2.5-2.5); ABG Oxygen Saturation 97.3 % (95-100); ABG PCO2 48.5 MM HG (35-48); ABG PH 7.379 (7.35-7.45); ABG PO2 113.4 MM HG (80-95); ABG TCO2 29.5 MMOL/L (23-27); Glucose Heart Surgery 145 MG/DL (74-106); Hemoglobin Heart Surgery 9.6 G/DL (14.0-18.0); Potassium Heart/CVR 4.2 MMOL/L (3.5-5.1)
[2018-03-10] MEDS: INSULIN REGULAR 100 UNIT/ML SUBCUT SCH ×3 (03:07→11:07)
[2018-03-10] MEDS: methylPREDNISolone SOD SUC 40 MG/1 ML VIAL IV SCH ×2 (03:11→13:53)
[2018-03-10 03:37] LABS: ABG Base Excess 3.1 MMOL/L (-2.5-2.5); ABG HCO3 28.5 MMOL/L (20-26); ABG Oxygen Saturation 96.6 % (95-100); ABG PCO2 47.6 MM HG (35-48); ABG PH 7.395 (7.35-7.45); ABG PO2 96.9 MM HG (80-95); Glucose Heart Surgery 145 MG/DL (74-106); Hemoglobin Heart Surgery 9.4 G/DL (14.0-18.0); Potassium Heart/CVR 4.2 MMOL/L (3.5-5.1)
[2018-03-10 03:44] LABS: Basophils % 0.1 % (0.0-0.8); Hematocrit 26.2 VOL% (42.0-52.0); Hemoglobin 8.6 GM/DL (14.0-18.0); Immature Granulocytes % 1.1 %; Immature Granulocytes Absolute 0.12 #; Lymphocytes # 0.4 10*3/uL (1.4-4.0); Lymphocytes % 3.3 % (21.2-54.2); Mean Corpuscular HGB Conc 32.8 GM/DL (32-36); Mean Corpuscular Hemoglobin 30 PG (27-34); Mean Corpuscular Volume 91.6 FL (87-102); Mean Platelet Volume 11.4 FL (9.6-12.0); Monocytes # 1.1 10*3/uL (0.11-0.8); Monocytes % 10.1 % (1.7-12.7); Neutrophils # 9.6 10*3/uL (1.4-7.4); Neutrophils % 85.4 % (38.7-73.9); Platelet Count 175 T/CUMM (130-400); Red Blood Count 2.86 MC/CUMM (3.8-5.5); Red Cell Distribution Width 15.9 % (9.3-17.3); White Blood Count 11.2 T/CUMM (4-12)
[2018-03-10 03:58] LABS: CKMB % 4.7 %; Troponin I 3.89 NG/ML (0.00-0.045)
[2018-03-10 04:44] LABS: Band Neutrophils 3 % (0-10); Eosinophils 2 % (0-10); Hypochromasia 2+; Lymphocytes 5 % (20-55); Platelet Estimate Normal; Segmented Neutrophils 80 % (50-85); Total Cells Counted 100
[2018-03-10 04:52] LABS: Albumin 3.5 G/DL (3.4-5.0); Bilirubin,Direct 0.19 MG/DL (0.0-0.20); Bilirubin,Total 0.6 MG/DL (0.2-1.0); Calcium 7.9 MG/DL (8.5-10.1); Osmolality,Calculated 302.7 MOS/KG (273-304); Potassium 4.4 MMOL/L (3.5-5.1); Total Protein 5.8 G/DL (6.4-8.3)
[2018-03-10] MEDS: POTASSIUM CHLORIDE RIDER 20 MEQ in PREMIX 1 EACH IV PRN (05:34)
[2018-03-10] MEDS: MORPHINE 4 MG/1 ML VIAL IV PRN ×5 (05:42→20:58)
[2018-03-10] MEDS: CEFUROXIME INJ 1,500 MG in SYRINGE 1 EACH IV SCH (08:30)
[2018-03-10] MEDS ORDERED: cloNIDine 0.1 MG TABLET PO PRN (09:31)
[2018-03-10] MEDS ORDERED: methylPREDNISolone SOD SUC 40 MG/1 ML VIAL IV SCH (10:00)
[2018-03-10] MEDS ORDERED: SODIUM CHLOR 0.45% KCL 20 MEQ 20 MEQ/1,000 ML BAG IV SCH (10:24)
[2018-03-10] MEDS ORDERED: ZALEPLON 5 MG CAPSULE PO PRN (10:24)
[2018-03-10] MEDS ORDERED: POTASSIUM CHLORIDE 20 MEQ TABLET PO PRN (10:24)
[2018-03-10] MEDS ORDERED: GLUCAGON 1 MG VIAL IM PRN ×2 (10:24)
[2018-03-10] MEDS ORDERED: ALUMINUM/MAGNES/SIMETH MAX STR 30 ML UDCUP PO PRN (10:24)
[2018-03-10] MEDS ORDERED: MAGNESIUM HYDROXIDE SUSP 30 ML UDCUP PO PRN (10:24)
[2018-03-10] MEDS ORDERED: MAGNESIUM SULF RIDER 2 GM in PREMIX 1 EACH IV PRN (10:24)
[2018-03-10] MEDS ORDERED: DEXTROSE 50% 25 GM/50 ML VIAL IV PRN ×2 (10:24)
[2018-03-10] MEDS ORDERED: ONDANSETRON 4 MG/2 ML VIAL IV PRN (10:24)
[2018-03-10] MEDS ORDERED: MAGNESIUM SULF RIDER 4 GM in PREMIX 1 EACH IV PRN (10:24)
[2018-03-10] MEDS ORDERED: ACETAMINOPHEN 325 MG TABLET PO PRN (10:24)
[2018-03-10] MEDS: CHLORHEXIDINE 0.12% ORAL RINSE 60 ML BOTTLE SWISH/SPIT SCH ×2 (10:31→21:00)
[2018-03-10] MEDS: SODIUM CHLORIDE 0.45% 1,000 ML IV SCH (11:23)
[2018-03-10] MEDS: ALBUTEROL/IPRATROPIUM 3 ML NEB RESP TX SCH ×2 (13:45→19:22)
[2018-03-10] MEDS: oxyCODONE/ACETAMINOPHEN 5-325 MG TABLET PO PRN (13:50)
[2018-03-10] MEDS ORDERED: CEFUROXIME 1,500 MG VIAL IV ONE (20:00)
[2018-03-10] MEDS ORDERED: CEFUROXIME INJ 1,500 MG in SYRINGE 1 EACH IV ONE (20:00)
[2018-03-10] MEDS ORDERED: CEFUROXIME 1,500 MG VIAL IM ONE (20:00)
[2018-03-10] MEDS ORDERED: clonazePAM 0.5 MG TABLET PO SCH (21:00)
[2018-03-10] MEDS: TAMSULOSIN 0.4 MG CAPSULE PO SCH (21:00)
[2018-03-10] MEDS: ASCORBIC ACID 500 MG TABLET PO SCH (21:01)
[2018-03-10] MEDS: METOPROLOL TARTRATE 25 MG TABLET PO SCH (21:01)
[2018-03-11] MEDS: ALBUTEROL/IPRATROPIUM 3 ML NEB RESP TX SCH ×4 (00:37→19:17)
[2018-03-11] MEDS: MORPHINE 4 MG/1 ML VIAL IV PRN ×2 (00:57→05:00)
[2018-03-11] MEDS: methylPREDNISolone SOD SUC 40 MG/1 ML VIAL IV SCH ×2 (02:05→14:12)
[2018-03-11] MEDS ORDERED: guaiFENesin 200 MG/10 ML UDCUP PO PRN (04:50)
[2018-03-11 05:41] LABS: Basophils % 0.1 % (0.0-0.8); Hematocrit 27.6 VOL% (42.0-52.0); Hemoglobin 9.1 GM/DL (14.0-18.0); Immature Granulocytes % 1.2 %; Immature Granulocytes Absolute 0.14 #; Lymphocytes # 0.6 10*3/uL (1.4-4.0); Lymphocytes % 5.3 % (21.2-54.2); Mean Corpuscular Hemoglobin 30 PG (27-34); Mean Corpuscular Volume 91.7 FL (87-102); Mean Platelet Volume 11.8 FL (9.6-12.0); Monocytes # 1.2 10*3/uL (0.11-0.8); Monocytes % 10.2 % (1.7-12.7); Neutrophils # 9.8 10*3/uL (1.4-7.4); Neutrophils % 83.2 % (38.7-73.9); Platelet Count 142 T/CUMM (130-400); Red Blood Count 3.01 MC/CUMM (3.8-5.5); Red Cell Distribution Width 15.1 % (9.3-17.3); White Blood Count 11.7 T/CUMM (4-12)
[2018-03-11] MEDS ORDERED: FUROSEMIDE 40 MG/4 ML VIAL IV ONE (06:00)
[2018-03-11 06:23] LABS: % Iron Saturation 14.6 % (18-50); Ferritin 242.3 ng/ml (26-388)
[2018-03-11 06:26] LABS: Albumin 3.2 G/DL (3.4-5.0); Bilirubin,Direct 0.16 MG/DL (0.0-0.20); Bilirubin,Indirect 0.4 MG/DL (0.0-1.0); Bilirubin,Total 0.6 MG/DL (0.2-1.0); CKMB % 2.1 %; Osmolality,Calculated 296.1 MOS/KG (273-304); Potassium 4.1 MMOL/L (3.5-5.1); Total Protein 6.4 G/DL (6.4-8.3)
[2018-03-11 06:30] LABS: Troponin I 1.52 NG/ML (0.00-0.045)
[2018-03-11 06:35] LABS: Vitamin B12 357 PG/ML (211-911)
[2018-03-11 08:10] LABS: Sedimentation Rate-Westergren 92 MM/HR (0-20)
[2018-03-11] MEDS: COENZYME Q10 100 MG CAPSULE PO SCH (08:35)
[2018-03-11] MEDS: FAMOTIDINE 20 MG TABLET PO SCH (08:36)
[2018-03-11] MEDS: ATORVASTATIN 80 MG TABLET PO SCH (08:36)
[2018-03-11] MEDS: THIAMINE 100 MG TABLET PO SCH (08:36)
[2018-03-11] MEDS: ESCITALOPRAM 10 MG TABLET PO SCH (08:36)
[2018-03-11] MEDS: METOPROLOL TARTRATE 25 MG TABLET PO SCH ×2 (08:36→20:57)
[2018-03-11] MEDS: MULTIVITAMIN (BEROCCA) TABLET PO SCH (08:36)
[2018-03-11] MEDS: FOLIC ACID 1 MG TABLET PO SCH (08:37)
[2018-03-11] MEDS: DOCUSATE SODIUM 100 MG CAPSULE PO SCH (08:37)
[2018-03-11] MEDS: ASCORBIC ACID 500 MG TABLET PO SCH ×2 (08:37→20:56)
[2018-03-11] MEDS: ASPIRIN EC 81 MG TABLET PO SCH (08:37)
[2018-03-11] MEDS: TRIAMTERENE/HCTZ 75-50 MG TABLET PO SCH (08:37)
[2018-03-11] MEDS: FERROUS SULFATE 325 MG TABLET PO SCH (08:37)
[2018-03-11] MEDS: CHLORHEXIDINE 0.12% ORAL RINSE 60 ML BOTTLE SWISH/SPIT SCH ×2 (08:38→20:57)
[2018-03-11] MEDS: oxyCODONE/ACETAMINOPHEN 5-325 MG TABLET PO PRN ×3 (08:39→21:04)
[2018-03-11 11:30] LABS: Segmented Neutrophils 80 % (50-85)
[2018-03-11 11:31] LABS: Hypochromasia 1+; Lymphocytes 12 % (20-55); Polychromasia Slight; Total Cells Counted 100
[2018-03-11 11:32] LABS: Platelet Estimate Adequate
[2018-03-11] MEDS: CYANOCOBALAMIN 500 MCG TABLET PO SCH (12:11)
[2018-03-11] MEDS: BENZONATATE 100 MG CAPSULE PO SCH ×2 (15:11→20:57)
[2018-03-11] MEDS: TAMSULOSIN 0.4 MG CAPSULE PO SCH (20:57)
[2018-03-11] MEDS: SODIUM CHLORIDE 0.45% 1,000 ML IV SCH (21:02)
[2018-03-12] MEDS: ALBUTEROL/IPRATROPIUM 3 ML NEB RESP TX SCH ×4 (01:24→20:00)
[2018-03-12] MEDS: methylPREDNISolone SOD SUC 40 MG/1 ML VIAL IV SCH (01:47)
[2018-03-12 05:26] LABS: Basophils % 0.1 % (0.0-0.8); Hematocrit 27.1 VOL% (42.0-52.0); Hemoglobin 8.7 GM/DL (14.0-18.0); Immature Granulocytes % 1.5 %; Immature Granulocytes Absolute 0.19 #; Lymphocytes # 0.7 10*3/uL (1.4-4.0); Mean Corpuscular HGB Conc 32.1 GM/DL (32-36); Mean Corpuscular Hemoglobin 30 PG (27-34); Mean Corpuscular Volume 92.2 FL (87-102); Mean Platelet Volume 11.8 FL (9.6-12.0); Monocytes # 0.9 10*3/uL (0.11-0.8); Monocytes % 7.6 % (1.7-12.7); NRBC # 0.02 10*3/uL; Neutrophils # 10.5 10*3/uL (1.4-7.4); Neutrophils % 84.8 % (38.7-73.9); Platelet Count 159 T/CUMM (130-400); Red Blood Count 2.94 MC/CUMM (3.8-5.5); Red Cell Distribution Width 14.6 % (9.3-17.3); White Blood Count 12.3 T/CUMM (4-12)
[2018-03-12 06:09] LABS: Albumin 3.1 G/DL (3.4-5.0); Bilirubin,Direct 0.19 MG/DL (0.0-0.20); Bilirubin,Indirect 0.6 MG/DL (0.0-1.0); Bilirubin,Total 0.8 MG/DL (0.2-1.0); CKMB % 1.6 %; Calcium 8.3 MG/DL (8.5-10.1); Osmolality,Calculated 291.5 MOS/KG (273-304); Potassium 4.2 MMOL/L (3.5-5.1); Total Protein 6.5 G/DL (6.4-8.3); Troponin I 0.827 NG/ML (0.00-0.045)
[2018-03-12] MEDS: MORPHINE 4 MG/1 ML VIAL IV PRN ×2 (07:44→21:16)
[2018-03-12] MEDS: COENZYME Q10 100 MG CAPSULE PO SCH (08:55)
[2018-03-12] MEDS: CYANOCOBALAMIN 500 MCG TABLET PO SCH (08:56)
[2018-03-12] MEDS: MULTIVITAMIN (BEROCCA) TABLET PO SCH (08:56)
[2018-03-12] MEDS: ATORVASTATIN 80 MG TABLET PO SCH (08:56)
[2018-03-12] MEDS: FERROUS SULFATE 325 MG TABLET PO SCH (08:57)
[2018-03-12] MEDS: ASCORBIC ACID 500 MG TABLET PO SCH ×2 (08:57→21:03)
[2018-03-12] MEDS: BENZONATATE 100 MG CAPSULE PO SCH ×3 (08:57→21:03)
[2018-03-12] MEDS: ESCITALOPRAM 10 MG TABLET PO SCH (08:57)
[2018-03-12] MEDS: FAMOTIDINE 20 MG TABLET PO SCH (08:58)
[2018-03-12] MEDS: TRIAMTERENE/HCTZ 75-50 MG TABLET PO SCH (08:58)
[2018-03-12] MEDS: DOCUSATE SODIUM 100 MG CAPSULE PO SCH (08:58)
[2018-03-12] MEDS: CHLORHEXIDINE 0.12% ORAL RINSE 60 ML BOTTLE SWISH/SPIT SCH ×2 (08:58→21:04)
[2018-03-12] MEDS: predniSONE 5 MG TABLET PO SCH ×2 (08:58→21:03)
[2018-03-12] MEDS: FOLIC ACID 1 MG TABLET PO SCH (08:58)
[2018-03-12] MEDS: ASPIRIN EC 81 MG TABLET PO SCH (08:58)
[2018-03-12] MEDS: METOPROLOL TARTRATE 25 MG TABLET PO SCH ×2 (08:58→21:03)
[2018-03-12] MEDS: THIAMINE 100 MG TABLET PO SCH (08:58)
[2018-03-12] MEDS: APIXABAN 5 MG TABLET PO SCH ×2 (13:31→21:03)
[2018-03-12] MEDS: oxyCODONE/ACETAMINOPHEN 5-325 MG TABLET PO PRN (13:31)
[2018-03-12] MEDS: TAMSULOSIN 0.4 MG CAPSULE PO SCH (21:03)
[2018-03-13] MEDS: MORPHINE 4 MG/1 ML VIAL IV PRN (00:39)
[2018-03-13] MEDS: ALBUTEROL/IPRATROPIUM 3 ML NEB RESP TX SCH ×4 (01:38→19:05)
[2018-03-13] MEDS: ESCITALOPRAM 10 MG TABLET PO SCH (08:52)
[2018-03-13] MEDS: CYANOCOBALAMIN 500 MCG TABLET PO SCH (08:52)
[2018-03-13] MEDS: COENZYME Q10 100 MG CAPSULE PO SCH (08:52)
[2018-03-13] MEDS: ATORVASTATIN 80 MG TABLET PO SCH (08:52)
[2018-03-13] MEDS: APIXABAN 5 MG TABLET PO SCH ×2 (08:53→20:04)
[2018-03-13] MEDS: ASCORBIC ACID 500 MG TABLET PO SCH ×2 (08:53→20:03)
[2018-03-13] MEDS: FERROUS SULFATE 325 MG TABLET PO SCH (08:53)
[2018-03-13] MEDS: predniSONE 5 MG TABLET PO SCH ×2 (08:53→20:04)
[2018-03-13] MEDS: METOPROLOL TARTRATE 25 MG TABLET PO SCH ×2 (08:53→20:04)
[2018-03-13] MEDS: DOCUSATE SODIUM 100 MG CAPSULE PO SCH (08:54)
[2018-03-13] MEDS: TRIAMTERENE/HCTZ 75-50 MG TABLET PO SCH (08:54)
[2018-03-13] MEDS: CHLORHEXIDINE 0.12% ORAL RINSE 60 ML BOTTLE SWISH/SPIT SCH ×2 (08:54→20:04)
[2018-03-13] MEDS: BENZONATATE 100 MG CAPSULE PO SCH ×3 (08:54→20:03)
[2018-03-13] MEDS: ASPIRIN EC 81 MG TABLET PO SCH (08:54)
[2018-03-13] MEDS: FOLIC ACID 1 MG TABLET PO SCH (08:54)
[2018-03-13] MEDS: THIAMINE 100 MG TABLET PO SCH (08:54)
[2018-03-13] MEDS: FUROSEMIDE 40 MG/4 ML VIAL IV SCH (08:55)
[2018-03-13] MEDS ORDERED: ERGOCALCIFEROL 50,000 UNIT CAPSULE PO SCH (09:00)
[2018-03-13] MEDS: MULTIVITAMIN (BEROCCA) TABLET PO SCH (09:05)
[2018-03-13] MEDS: FAMOTIDINE 20 MG TABLET PO SCH (09:06)
[2018-03-13] MEDS: oxyCODONE/ACETAMINOPHEN 5-325 MG TABLET PO PRN ×3 (09:51→20:04)
[2018-03-13] MEDS: TAMSULOSIN 0.4 MG CAPSULE PO SCH (20:04)
[2018-03-14] MEDS: ALBUTEROL/IPRATROPIUM 3 ML NEB RESP TX SCH ×3 (00:28→13:50)
[2018-03-14] MEDS: oxyCODONE/ACETAMINOPHEN 5-325 MG TABLET PO PRN ×3 (00:58→10:54)
[2018-03-14 04:50] LABS: Basophils % 0.1 % (0.0-0.8); Eosinophils # 0.1 10*3/uL (0.0-0.87); Eosinophils % 1.2 % (0.00-10.9); Hematocrit 26.5 VOL% (42.0-52.0); Immature Granulocytes Absolute 0.23 #; Lymphocytes # 1.8 10*3/uL (1.4-4.0); Lymphocytes % 15.2 % (21.2-54.2); Mean Corpuscular Hemoglobin 31 PG (27-34); Mean Corpuscular Volume 91.4 FL (87-102); Mean Platelet Volume 11.2 FL (9.6-12.0); Monocytes # 1.5 10*3/uL (0.11-0.8); Monocytes % 12.9 % (1.7-12.7); Neutrophils % 68.6 % (38.7-73.9); Platelet Count 193 T/CUMM (130-400); Red Cell Distribution Width 14.9 % (9.3-17.3); White Blood Count 11.7 T/CUMM (4-12)
[2018-03-14 05:28] LABS: Alanine Aminotransferase 30 U/L (16-61); Albumin 3.2 G/DL (3.4-5.0); Alkaline Phosphatase 51 U/L (45-117); Aspartate Amino Transferase 18 U/L (0-37); Bilirubin,Indirect 0.7 MG/DL (0.0-1.0); Blood Urea Nitrogen 48 MG/DL (7-18); Calcium 8.4 MG/DL (8.5-10.1); Glucose 99 MG/DL (74-106); Osmolality,Calculated 285.8 MOS/KG (273-304); Potassium 3.6 MMOL/L (3.5-5.1); Sodium 137 MMOL/L (136-145); Total Protein 6.8 G/DL (6.4-8.3)
[2018-03-14 05:32] LABS: Troponin I 0.285 NG/ML (0.00-0.045)
[2018-03-14] MEDS: ATORVASTATIN 80 MG TABLET PO SCH (10:29)
[2018-03-14] MEDS: FOLIC ACID 1 MG TABLET PO SCH (10:29)
[2018-03-14] MEDS: METOPROLOL TARTRATE 25 MG TABLET PO SCH (10:30)
[2018-03-14] MEDS: FAMOTIDINE 20 MG TABLET PO SCH (10:31)
[2018-03-14] MEDS: APIXABAN 5 MG TABLET PO SCH (10:31)
[2018-03-14] MEDS: THIAMINE 100 MG TABLET PO SCH (10:31)
[2018-03-14] MEDS: ASPIRIN EC 81 MG TABLET PO SCH (10:31)
[2018-03-14] MEDS: TRIAMTERENE/HCTZ 75-50 MG TABLET PO SCH (10:31)
[2018-03-14] MEDS: FERROUS SULFATE 325 MG TABLET PO SCH (10:31)
[2018-03-14] MEDS: CYANOCOBALAMIN 500 MCG TABLET PO SCH (10:32)
[2018-03-14] MEDS: ASCORBIC ACID 500 MG TABLET PO SCH (10:33)
[2018-03-14] MEDS: BENZONATATE 100 MG CAPSULE PO SCH ×2 (10:33→14:33)
[2018-03-14] MEDS: MULTIVITAMIN (BEROCCA) TABLET PO SCH (10:33)
[2018-03-14 10:34] LABS: Hemoglobin A1 (Alkaline) 97.3 % (96.5-98.5); Hemoglobin A2 (Alkaline) 2.7 % (1.5-3.5)
[2018-03-14] MEDS: predniSONE 5 MG TABLET PO SCH (10:34)
[2018-03-14] MEDS: ESCITALOPRAM 10 MG TABLET PO SCH (10:34)
[2018-03-14] MEDS: DOCUSATE SODIUM 100 MG CAPSULE PO SCH (10:35)
[2018-03-14] MEDS: FUROSEMIDE 40 MG/4 ML VIAL IV SCH (10:35)
[2018-03-14] MEDS: CHLORHEXIDINE 0.12% ORAL RINSE 60 ML BOTTLE SWISH/SPIT SCH (10:35)
[2018-03-14] MEDS: COENZYME Q10 100 MG CAPSULE PO SCH (10:36)
[2018-03-14 12:44] VITALS: BP 102/57
== END 2018-03-14 15:07 | disposition home health service (06) | DRG 234 ==
LOC: N.EDINP 10:50 → N.ED 10:50 → N.TELEN 14:45 → SUATTDRO 03-07 12:25 → N.CVR 03-09 07:12 → N.TELES 03-10 12:07
PROVIDERS: ADMIT Hospitalist; ATTEND Internal Medicine Geriatric Medicine
PROC: CLCCHCL (ICD-10-PCS; 2018-03-07 08:45)